=== PATIENT | female | born 1990 | race Caucasian/White ===

== ENCOUNTER 2017-05-05 18:34 | Emergency (ER) | payer BC, MEDICAID ==
[~2017-05-05] VITALS: Ht 157.5 cm; Wt 47.6 kg
[2017-05-05 18:49] VITALS: BP 112/61
[2017-05-05] MEDS ORDERED: CYCLOBENZAPRINE 5 MG TABLET (18:53)
[2017-05-05] MEDS ORDERED: IBUPROFEN 600 MG TABLET (18:53)
[2017-05-05] MEDS ORDERED: DIAZEPAM 5 MG TABLET (18:53)
[2017-05-05] MEDS ORDERED: HYDROCODON ACETAMINOPH (18:53)
[2017-05-05] MEDS ORDERED: IBUPROFEN 800 MG TABLET (18:53)
[2017-05-05] MEDS ORDERED: HYDROCODON-ACETAMINOPHEN 5-325 (18:53)
--- NOTE | 2017-05-05 19:08 | NUR ---
pt was requesting [place] for pain management. refusing to be examined. ama signed. d/c in stable condition.
== END 2017-05-05 19:19 | disposition home or self-care (01) ==
LOC: ER 18:37
DX: M54.2 Cervicalgia (principal); M54.9 Dorsalgia, unspecified; Z88.0 Allergy status to penicillin; Z59.0 Homelessness; V89.2XXA Person injured in unspecified motor-vehicle accident, traffic, initial encounter; Y93.89 Activity, other specified; Y92.410 Unspecified street and highway as the place of occurrence of the external cause; Y99.9 Unspecified external cause status
CPT/HCPCS: A4606; Z7502; Z7610